=== PATIENT | female | born 1955 | race Caucasian/White ===

== ENCOUNTER 2016-11-06 21:53 | Emergency (ER) | payer OTHER ==
[2016-11-06] MEDS ORDERED: ALPRAZolam 0.25 MG TAB ONE (22:24)
[2016-11-06] MEDS ORDERED: Atenolol 25 MG TAB ONE (22:24)
[2016-11-06 22:49] LABS: ALT (SGPT) 18 U/L (8-55); AST (SGOT) 17 U/L (5-34); Albumin 4.7 g/dL (3.4-4.8); Alkaline Phosphatase 85 U/L (40-150); Anion Gap 15 mmol/L (10-20); BUN (Urea Nitrogen) 17 mg/dL (9.8-20.1); Bilirubin, Total 0.3 mg/dL (0.2-1.2); Calc. Creatinine Clearance 0 mL/min (70-130); Carbon Dioxide 26 mmol/L (23-31); Chloride 104 mmol/L (98-107); Estimated GFR-MDRD 55; Globulin 2.8 g/dL (2.4-3.5); Glucose 134 mg/dL (80-115); Potassium 3.5 mmol/L (3.5-5.1); Protein, Total 7.5 g/dL (6.0-8.3); Sodium 141 mmol/L (136-145)
[2016-11-06 23:12] LABS: Eosinophils 1 % (0-10); Hemoglobin 12.1 g/dL (12.0-16.0); Lymphocytes 55 % (21-51); MDiff Complete? YES; Mean Corpuscular HGB CONC 33.7 g/dL (32.0-36.0); Mean Corpuscular Hemoglobin 29.7 pg (27.0-31.0); Mean Corpuscular Volume 88.3 fl (81.0-99.0); Mean Platelet Volume 6.6 fL (7.4-10.4); Monocytes 12 % (0-10); Neutrophil 31 % (42-75); Platelet Count 275 thou/uL (130-400); RBC Distribution Width 11.9 % (11.5-14.5); Reactive Lymphocytes 1 % (0-10); Red Blood Cell (RBC) Count 4.07 mill/uL (4.20-5.40); White Blood Cell (WBC) Count 13.3 thou/uL (4.8-10.8)
== END 2016-11-06 23:35 | disposition home or self-care (01) ==
LOC: NAV ERS 21:53
DX: I10 Essential (primary) hypertension (principal); F41.9 Anxiety disorder, unspecified; E78.5 Hyperlipidemia, unspecified; F31.9 Bipolar disorder, unspecified; Z79.82 Long term (current) use of aspirin; Z79.899 Other long term (current) drug therapy
CPT/HCPCS: 80053; 80178; 85025; 93005

== ENCOUNTER 2018-12-02 09:58 | Outpatient (CLI) | payer OTHER ==
--- NOTE | 2018-12-02 11:44 | RAD ---
CHEST PA AND LATERAL: HISTORY: Persistent cough x3 months. COMPARISON: 10/28/2013 FINDINGS: Heart size is within normal limits. The aorta is mildly tortuous. The lungs are clear of any infilt rative process. IMPRESSION: No active intrathoracic disease. POS: OFF
== END 2018-12-02 09:59 | disposition home or self-care (01) ==
LOC: NAV RAD 09:58
PROVIDERS: ATTEND Family Medicine
DX: R05 Cough (principal)
CPT/HCPCS: 71046

== ENCOUNTER 2019-02-21 08:47 | Emergency (ER) | payer MEDICARE, OTHER | END 2019-02-21 10:36 | disposition home or self-care (01) | LOC: NAV ERS 08:47 | DX: J06.9 Acute upper respiratory infection, unspecified (principal); F41.9 Anxiety disorder, unspecified; F31.9 Bipolar disorder, unspecified; E78.5 Hyperlipidemia, unspecified; E78.00 Pure hypercholesterolemia, unspecified; I10 Essential (primary) hypertension; Z79.899 Other long term (current) drug therapy | CPT/HCPCS: 99283 ==

== ENCOUNTER 2023-11-26 09:52 | Outpatient (CLI) | payer MEDICARE, OTHER | END 2023-11-26 09:53 | disposition home or self-care (01) | LOC: NAV RAD 09:52 | PROVIDERS: ATTEND Student in an Organized Health Care Education/Training Program | DX: M47.26 Other spondylosis with radiculopathy, lumbar region (principal) | CPT/HCPCS: 72100 ==